=== PATIENT | male | born 1945 | race Caucasian/White ===

== ENCOUNTER 2020-06-11 06:15 | Day surgery (SDC) | payer OTHER | END 2020-06-11 12:31 | disposition home or self-care (01) | LOC: AMB-ENDOS 06:15 | PROVIDERS: ATTEND Colon & Rectal Surgery | DX: D12.4 Benign neoplasm of descending colon (principal); K64.1 Second degree hemorrhoids; Z20.828 Contact with and (suspected) exposure to other viral communicable diseases ==

== ENCOUNTER 2020-09-06 13:07 | Outpatient (CLI) | payer OTHER | END 2020-09-06 13:09 | disposition home or self-care (01) | LOC: SONOGRAMA 13:07 | PROVIDERS: ATTEND Pathology Anatomic Pathology | DX: D34 Benign neoplasm of thyroid gland (principal); E04.8 Other specified nontoxic goiter; E04.2 Nontoxic multinodular goiter ==

== ENCOUNTER 2022-10-12 10:38 | Outpatient (CLI) | payer OTHER | END 2022-10-12 10:41 | disposition home or self-care (01) | LOC: SONOGRAMA 10:38 | PROVIDERS: ATTEND Pathology Anatomic Pathology & Clinical Pathology | DX: D34 Benign neoplasm of thyroid gland (principal); E04.9 Nontoxic goiter, unspecified; E04.2 Nontoxic multinodular goiter ==